=== PATIENT | female | born 1975 | race Two or more races ===

== ENCOUNTER 2025-06-25 10:27 | Emergency (ER) | payer OTHER ==
[~2025-06-25] VITALS: Ht 154.9 cm; Wt 44.5 kg
[2025-06-25 11:06] VITALS: BP 135/88; O2SAT 97
[2025-06-25 13:47] LABS: BASO % 0.8 % (0.1-1.2); EOS # 0.02 (0.04-0.54); EOS % 0.8 % (0.7-7.0); LYMPH # 0.79 (1.18-3.74); LYMPH % 31.5 % (19.3-53.1); MEAN PLATELET VOLUME 10.50 fl (9.4-12.4); MONO # 0.47 (0.24-0.82); MONO % 18.7 % (4.7-12.5); NEUT # 1.20 (1.56-6.13); NEUT % 47.8 % (34.0-71.1); RED CELL DISTRIBUTION WIDTH 12.1 % (11.6-14.4)
[2025-06-25 14:36] LABS: COVID-19 AG NEGATIVE (NEGATIVE)
[2025-06-25] MEDS ORDERED: OSELTAMIVIR PHO75 MG PO (15:27)
== END 2025-06-25 15:47 | disposition home or self-care (01) ==
LOC: ER 10:28
PROVIDERS: General Practice
DX: B34.9 Viral infection, unspecified (principal); J10.1 Influenza due to other identified influenza virus with other respiratory manifestations; R05.8 Other specified cough; R51.9 Headache, unspecified; Z20.822 Contact with and (suspected) exposure to COVID-19